=== PATIENT | female | born 1985 | race Caucasian/White ===

== ENCOUNTER 2021-03-11 23:59 | Emergency (ER) | payer OTHER ==
[2021-03-12 02:18] LABS: HCT 40.1 % (37.0-47.0); HGB 12.7 g/dl (12.5-16.0); MCHC 31.7 g/dL (32.0-36.0); MCV 88.5 fL (78.0-100.0); MPV 11.7 fL (6.0-9.5); RBC 4.53 M/uL (4.20-5.40); RDW 13.2 % (11.5-14.0); WBC 4.4 K/uL (4.0-10.5)
[2021-03-12 02:36] LABS: ALBUMIN 3.4 g/dL (3.4-5.0); BILIRUBIN - TOTAL 0.2 mg/dL (0.2-1.0); BUN/CREAT RATIO (CALC) 14.1 RATIO; CREATININE 0.78 mg/dL (0.51-0.95); GLOBULIN (CALCULATION) 4.4 g/dL; POTASSIUM 3.1 mmol/L (3.5-5.1); TOTAL PROTEIN 7.8 g/dL (6.4-8.2)
[2021-03-12 04:46] LABS: BILIRUBIN NEGATIVE (NEGATIVE); BLOOD NEGATIVE Ery/uL (NEGATIVE); CLARITY CLEAR (CLEAR); COLOR YELLOW (YELLOW); GLUCOSE (U) NORMAL (NORMAL); LEUKOCYTES NEGATIVE Leu/uL (NEGATIVE); NITRITE NEGATIVE (NEGATIVE); PROTEIN NEGATIVE (NEGATIVE); SPECIFIC GRAVITY 1.025 (1.001-1.030); UROBILINOGEN 0.2 mg/dL (0.2-1.0)
[2021-03-12] MEDS ORDERED: VENTOLIN HFA18 GM INH (05:49)
[2021-03-13 21:06] LABS: CHLAMYDIA TRACHOMATIS, NAA Negative (Negative); NEISSERIA GONORRHOEAE, NAA Negative (Negative)
== END 2021-03-12 06:18 | disposition home or self-care (01) ==
LOC: FER 23:59
PROVIDERS: Emergency Medicine
DX: O98.511 Other viral diseases complicating pregnancy, first trimester (principal); U07.1 COVID-19; O20.0 Threatened abortion; Z88.7 Allergy status to serum and vaccine; Z23 Encounter for immunization; Z3A.01 Less than 8 weeks gestation of pregnancy
CPT/HCPCS: 36415; 71045; 76817; 80053; 81003; 84702; 87210; 87491; 87591; J7030; M0243; Q0244; U0002

== ENCOUNTER 2021-05-31 00:13 | Emergency (ER) | payer OTHER ==
[~2021-05-31 00:13] MED LIST: VENTOLIN HFA18 GM INH
== END 2021-05-31 02:06 | disposition home or self-care (01) ==
LOC: FER 00:13
DX: S05.02XA Injury of conjunctiva and corneal abrasion without foreign body, left eye, initial encounter (principal); Z79.82 Long term (current) use of aspirin; X58.XXXA Exposure to other specified factors, initial encounter
CPT/HCPCS: 99283